=== PATIENT | male | born 1985 | race African-American/Black ===

== ENCOUNTER 2023-10-13 07:26 | Inpatient (IN) | payer MEDICAID, OTHER ==
--- NOTE | 2023-10-13 07:51 | ED ---
General Adult HPI - General Chief complaint: Psychiatric Symptoms Stated complaint: Mental health eval Time Seen by Provider: 10/13/23 07:40 Source: patient, police Mode of arrival: ambulatory Limitations: no limitations - History of Present Illness Initial comments: Dictation was produced using V[employer] dictation software. please excuse any grammatical, word or spelling errors. Chief Complaint: 38-year-old male presents to the ER for psychiatric evaluation History of Present Illness: Patient 38-year-old male brought in by police department. According to police patient's is concerned about his behavior. Patient is a poor historian and states that he is okay denies any physical complaints however unable to explain in detail why he was brought to the ER. Apparently according to PD he has been praying to sign God's and acting very bizarre. The ROS documented in this emergency department record has been reviewed and confirmed by me. Those systems with pertinent positive or negative responses have been documented in the HPI. All other systems are other negative and/or noncontributory. - Related Data Home Medications Medication Instructions Recorded Confirmed Unable To Assess [Unable to Assess] 10/13/23 10/13/23 Allergies Allergy/AdvReac Type Severity Reaction Status Date / Time No Known Allergies Allergy Verified 10/13/23 07:37 Review of Systems ROS Statement: Those systems with pertinent positive or pertinent negative responses have been documented in the HPI. ROS Other: All systems not noted in ROS Statement are negative. Past Medical History Past Medical History: No Reported History History of Any Multi-Drug Resistant Organisms: None Reported Past Surgical History: No Surgical Hx Reported Past Psychological History: No Psychological Hx Reported Smoking Status: Current every day smoker Past Alcohol Use History: None Reported Past Drug Use History: Marijuana General Exam - General Exam Comments Initial Comments: General: Well-appearing, nontoxic, no acute distress. Head: Normocephalic, atraumatic Eyes: PERRLA, EOMI ENT: Airway patent Chest: Nonlabored breathing Skin: No visual rash, normal skin tone Neuro: Alert and oriented 3 Musculoskeletal: No gross abnormalities Psych: Tangential speech, bizarre affect Limitations: no limitations Course Vital Signs 10/13/23 10/13/23 07:31 17:00 Temperature 97.4 F L Pulse Rate 78 78 Respiratory 18 18 Rate Blood Pressure 142/102 156/93 O2 Sat by Pulse 99 98 Oximetry Medical Decision Making - Medical Decision Making Was pt. sent in by a medical professional or institution (, L[facility]O, PSYCHOLOGICAL OPERATIONS SPECIALIST, urgent care, hospital, or fpc...) When possible be specific @ -No Did you speak to anyone other than the patient for history (EMS, parent, family, police, friend...)? What history was obtained from this source @ -See above Did you review nursing and triage notes (agree or disagree)? Why? @ -I reviewed and agree with nursing and triage notes Were old charts reviewed (outside hosp., previous admission, EMS record, old EKG, old radiological studies, urgent care reports/EKG's, fpc records)? Report findings @ -No old charts were reviewed Differential Diagnosis (chest pain, altered mental status, abdominal pain women, abdominal pain men, vaginal bleeding, musculoskeletal, weakness, fever, dyspnea, syncope, headache, dizziness, GI bleed, back pain, seizure, CVA, palpatations, mental health)? @ -Differential Mental Health: Depression, anxiety, bipolar, psychosis, schizophrenia, borderline personality, situational depression, adjustment disorder, behavioral disorder, brain tumor, malingering, substance abuse, encephalopathy, medication reaction, dementia, hypothyroidism, degenerative neurologic disorder, lupus.... This is not meant to be all-inclusive list EKG interpreted by me (3pts min.). @ -None done X-rays interpreted by me (1pt min.). @ -None done CT interpreted by me (1pt min.). @ -None done U/S interpreted by me (1pt. min.). @ -None done What testing was considered but not performed or refused? (CT, X-rays, U/S, labs)? Why? @ -None What meds were considered but not given or refused? Why? @ -None Did you discuss the management of the patient with other professionals (professionals i.e. , L[facility]O, PSYCHOLOGICAL OPERATIONS SPECIALIST, lab, RT, psych nurse, social services manager, bone drier operator, teacher, employee service officer, patient case manager)? Give summary @ -No Was smoking cessation discussed for >3mins.? @ -No Was critical care preformed (if so, how long)? @ -No Were there social determinants of health that impacted care today? How? (Homelessness, low income, unemployed, alcoholism, drug addiction, transpo rtation, low edu. Level, literacy, decrease access to med. care, snf, rehab)? @ -No Was there de-escalation of care discussed even if they declined (Discuss DNR or withdrawal of care, Hospice)? DNR status @ -No What co-morbidities impacted this encounter? (DM, HTN, Smoking, COPD, CAD, Cancer, CVA, ARF, Chemo, Hep., AIDS, mental health diagnosis, sleep apnea, morbid obesity)? @ -None Was patient admitted / discharged? Hospital course, mention meds given and route, prescriptions, significant lab abnormalities, going to OR and other pertinent info. @ -38-year-old male presents to the emergency department for psychiatric evaluation. Vital signs are stable. Patient well-appearing. Physical examination is unremarkable. Patient medically cleared for EPS evaluation. Patient will be admitted to inpatient psychiatry floor Undiagnosed new problem with uncertain prognosis? @ -No Drug Therapy requiring intensive monitoring for toxicity (Heparin, Nitro, Insulin, Cardizem)? @ -No Were any procedures done? @ -No Diagnosis/symptom? Acute, or Chronic, or Acute on Chronic? Uncomplicated (without systemic symptoms) or Complicated (systemic symptoms)? @ -Psychosis Side effects of treatment? @ -No Exacerbation, Progression, or Severe Exacerbation? @ -No Poses a threat to life or bodily function? How? (Chest pain, [place], [place], pneumonia, PE, COPD, DKA, ARF, appy, cholecystitis, CVA, Diverticulitis, Homicidal, Suicidal, threat to staff... and all critical care pts) @ -yes - Lab Data Lab Results 10/13/23 10/13/23 10/13/23 Range/Units 14:29 14:29 14:50 Urine Color Yellow Urine Appearance Clear (Clear) Urine pH 5.5 (5.0-8.0) Ur Specific [place] 1.032 (1.001-1.035) Urine Protein 1+ H (Negative) Urine Glucose (UA) Negative (Negative) Urine Ketones 2+ H (Negative) Urine Blood Small H (Negative) Urine Nitrite Negative (Negative) Urine Bilirubin Negative (Negative) Urine Urobilinogen <2.0 (<2.0) mg/dL Ur Leukocyte Esterase Negative (Negative) Urine RBC 4 (0-5) /hpf Urine WBC 2 (0-5) /hpf Urine Mucus Few H (None) /hpf Urine Opiates Screen Not Detected (NotDetected) Ur Oxycodone Screen Not Detected (NotDetected) Urine Methadone Screen Not Detected (NotDetected) Ur Barbiturates Screen Not Detected (NotDetected) U Tricyclic Antidepress Not Detected (NotDetected) Ur Phencyclidine Scrn Not Detected (NotDetected) Ur Amphetamines Screen Not Detected (NotDetected) U Methamphetamines Scrn Not Detected (NotDetected) U Benzodiazepines Scrn Not Detected (NotDetected) Urine Cocaine Screen Not Detected (NotDetected) U Marijuana (THC) Screen Detected H (NotDetected) Influenza Type A (PCR) Not Detected (Not Detectd) Influenza Type B (PCR) Not Detected (Not Detectd) RSV (PCR) Not Detected (Not Detectd) SARS-CoV-2 (PCR) Not Detected (Not Detectd) Disposition Clinical Impression: Psychosis Disposition: ADMITTED IP TO THIS HOSP Condition: Fair
[2023-10-13] MEDS ORDERED: LORazepam 2 MG/ML INJ IM PRN ×2 (12:00→17:11)
[2023-10-13] MEDS ORDERED: HALOPERIDOL LACTATE 5 MG/ML 1 ML VIAL IM PRN ×2 (12:00→17:11)
[2023-10-13] MEDS ORDERED: diphenhydrAMINE 50 MG/ML 1 ML VIAL IM PRN (12:01)
[2023-10-13 14:48] LABS: Amphetamine Screen,Urine Not Detected (NotDetected); Benzodiazepines Screen,Urine Not Detected (NotDetected); Cocaine Screen,Urine Not Detected (NotDetected); Opiate Screen,Urine Not Detected (NotDetected); Oxycodone Screen, Urine Not Detected (NotDetected); Phencyclidine Screen,Urine Not Detected (NotDetected); Tricyclic Antidepressant,Urine Not Detected (NotDetected); Urn Cannabinoid Scrn Detected (NotDetected)
[2023-10-13 14:49] LABS: Barbiturate Screen,Urine Not Detected (NotDetected); Methadone Screen, Urine Not Detected (NotDetected)
[2023-10-13 15:13] LABS: Appearance,Urine Clear (Clear); Bilirubin,Urine Negative (Negative); Blood,Urine Small (Negative); Color,Urine Yellow; Glucose,Urine (UA) Negative (Negative); Ketones,Urine 2+ (Negative); Leukocyte Esterase,Urine Negative (Negative); Mucus,Urine Few /hpf; Nitrite,Urine Negative (Negative); PH, Urine 5.5 (5.0-8.0); RBC,Urine 4 /hpf (0-5); Specific Gravity,Urine 1.032 (1.001-1.035); Urobilinogen,Urine <2.0 mg/dL (<2.0); WBC,Urine 2 /hpf (0-5)
[2023-10-13 15:15] LABS: Protein,Urine 1+ (Negative)
[2023-10-13] MEDS ORDERED: IBUPROFEN 600 MG TAB PO PRN (17:11)
[2023-10-13] MEDS ORDERED: LORazepam 1 MG TAB PO PRN (17:11)
[2023-10-13] MEDS ORDERED: haloperidoL 5 MG TAB PO PRN (17:11)
[2023-10-13] MEDS ORDERED: MAGNESIUM HYDROXIDE 2,400 MG/30 ML CUP PO PRN (17:11)
[2023-10-13] MEDS ORDERED: MAG HYDROX/AL HYDROX/SIMETH 355 ML BOTTLE PO PRN (17:11)
[2023-10-13] MEDS ORDERED: ACETAMINOPHEN TAB 325 MG TAB PO PRN (17:11)
--- NOTE | 2023-10-14 06:50 | P.PN ---
Progress Note - Text Progress Note Date: 10/14/23 Patient inappropriate for evaluation not responding to verbal cues
[2023-10-14 08:43] LABS: Basophils % (A) 1 %; Eosinophils # (A) 0.3 k/uL (0-0.7); Eosinophils % (A) 5 %; HCT 46.5 % (39.0-53.0); HGB 14.8 gm/dL (13.0-17.5); Lymphocytes # (A) 2.1 k/uL (1.0-4.8); Lymphocytes % (A) 38 %; MCH 27.2 pg (25.0-35.0); MCHC 31.9 g/dL (31.0-37.0); MCV 85.4 fL (80.0-100.0); Mean Platelet Volume 8.5; Monocytes # (A) 0.3 k/uL (0-1.0); Monocytes % (A) 6 %; Neutrophils # (A) 2.5 k/uL (1.3-7.7); Neutrophils % (A) 47 %; Platelet Count 186 k/uL (150-450); RBC 5.45 m/uL (4.30-5.90); RDW 14.1 % (11.5-15.5); WBC 5.4 k/uL (3.8-10.6)
[2023-10-14 08:53] LABS: ALT 34 U/L (4-49); AST 62 U/L (17-59); African American GFR (CKD) >90 (>60 ml/min/1.73 sqM); Albumin 5.1 g/dL (3.5-5.0); Alkaline Phosphatase 70 U/L (38-126); Anion Gap 10 mmol/L; Blood Urea Nitrogen 19 mg/dL (9-20); Calcium 9.8 mg/dL (8.4-10.2); Carbon Dioxide 24 mmol/L (22-30); Chloride 104 mmol/L (98-107); Glucose 98 mg/dL (74-99); Non-African American GFR(CKD) 80 (>60 ml/min/1.73 sqM); Potassium 4.2 mmol/L (3.5-5.1); Sodium 138 mmol/L (137-145); Total Bilirubin 1.8 mg/dL (0.2-1.3); Total Protein 9.6 g/dL (6.3-8.2)
[2023-10-14] MEDS: NICOTINE 14MG/24HR PATCH TRANSDERM SCH (08:57)
[2023-10-14 11:09] LABS: Urine Alcohol Negative (Negative); Urine Barbiturate Negative (Negative); Urine Cocaine Negative (Negative); Urine Methadone Negative (Negative); Urine Opiates Positive (Negative); Urine Phencyclidine Negative (Negative)
[2023-10-14] MEDS: PALIPERIDONE 3 MG TAB.ER.24 PO SCH (13:17)
[2023-10-14 18:37] LABS: LDL Cholesterol,Calculated 100.1 mg/dL (0.0-131.0); VLDL Calculation 16.18 mg/dL (5.00-40.00)
[2023-10-14] MEDS: traZODone HCL 50 MG TAB PO PRN (21:01)
--- NOTE | 2023-10-15 02:42 | P.CONS ---
History of Present Illness - Reason for Consult Consult date: 10/15/23 - History of Present Illness The patient is a 38-year-old male who was brought into the emergency room under police custody for strange behavior. The patient was admitted to the mental health unit where he was seen and evaluated. The patient has been nonverbal as per the mental health unit staff and is communicating via gesturing and writing answers on a piece of paper. The patient denied any active complaints at the time of interview. He denied experiencing chest discomfort, shortness of breath, fever, chills, cough, nausea, vomiting, abdominal pain, diarrhea. Patient reports recreational marijuana use but denies alcohol or tobacco use. Review of systems: Pertinent positives and negatives as discussed in HPI, a complete review of systems was performed and all other systems are negative. Physical examination: General: non toxic, no distress, appears at stated age, normal weight Derm: no unusual rashes/lesions, no unusual ecchymoses, warm, dry Head: atraumatic, normocephalic, symmetric Eyes: EOMI, no lid lag, anicteric sclera ENT: Nose and ears atraumatic, no thrush, no pharyngeal erythema Neck: trachea midline, supple Mouth: no lip lesion, mucus membranes moist Cardiovascular: S1S2 reg, no murmur, no edema Lungs: CTA bilateral, no rhonchi, no rales , no accessory muscle use Abdominal: soft, nontender to palpation, no guarding Ext: no gross muscle atrophy, no contractures, Neuro: No gross focal neuro deficits noted Psych: Alert, oriented, nonverbal Assessment: Marijuana abuse Psychosis Elevated total bilirubin Imaging: None performed Reviewed with urine toxicology positive for marijuana and opiates with total bilirubin 1.8 and AST 62 Plan: Advised on the importance of cessation from marijuana use Defer management of psychosis to primary psychiatry service Monitor LFTs for now and consider RUQ US if T bili remains elevated Thank you for allowing us to participate in the care of this patient. We will follow peripherally. Do not hesitate to contact us with questions. Someone can be reached from the [facility] hospitalist group at all hours of the day at [phone]. Past Medical History Past Medical History: No Reported History History of Any Multi-Drug Resistant Organisms: None Reported Past Surgical History: No Surgical Hx Reported Past Psychological History: No Psychological Hx Reported Smoking Status: Current every day smoker Past Alcohol Use History: None Reported Past Drug Use History: Marijuana Medications and Allergies Home Medications Medication Instructions Recorded Confirmed Type Unable To Assess [Unable to Assess] 10/13/23 10/13/23 History Allergies Allergy/AdvReac Type Severity Reaction Status Date / Time No Known Allergies Allergy Verified 10/13/23 07:37 Results CBC & Chem 7: 10/14/23 07:59 10/14/23 07:59 Labs: Abnormal Lab Results - Last 24 Hours (Table) 10/13/23 10/14/23 Range/Units 09:47 07:59 Total Bilirubin 1.8 H (0.2-1.3) mg/dL AST 62 H (17-59) U/L Total Protein 9.6 H (6.3-8.2) g/dL Albumin 5.1 H (3.5-5.0) g/dL HDL Cholesterol 27.70 L (40.00-60.00) mg/dL Urine Opiates Screen Positive A (Negative) U Cannabinoids Screen Positive A (Negative)
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
--- NOTE | 2023-10-15 08:06 | P.PN ---
Progress Note - Text Progress Note Date: 10/15/23 Interval History: Patient was seen in his room, and was directable and agreeable to speak with jose de jesus potts at the bedside. Patient appears less delusional today. Patient speaking to radio news writer in a normal tone of voice, compared to yesterday, where he was whispering. Patient appears to be improving with regards to responding to internal stimuli. Patient stated he slept like a baby, and that his mind is more clear today. Patient is going to some groups, and he claims his appetite is good. Patient offered no other complaints. At this time patient denies any suicidal or homicidal ideations, intent or plan. Patient denies any auditory, visual hallucinations and denies any paranoia or delusions. Patient denies any side effects from the medications and has been compliant with meds. He was less intrusive today. MENTAL STATUS EXAM: General Appearance: Patient appears to be stated age. is alert, directable, and attempts to cooperate. Patient appears to have mildly improving hygiene and grooming. Multiple tattoos all over his body Behavior: Patient is seated without any agitated behavior. Less responding to internal stimuli today. Speech: Patient's speech is a fluent and nonpressured. Mood/Affect: Patient reports their mood is depressed, affect is congruent and constricted. Proving mildly Suicidality/Homicidality: Patient denies having any homicidal ideation intent or plan. Denies any suicidal ideations intent or plan Perceptions: Patient denies any visual hallucinations and denies any auditory hallucinations Though content/process: There is no evidence of any delusional thought content Thought process mildly improving Memory and concentration: orientated to date Judgment and insight: poor, improving mildly IMPRESSIONS: psychosis, unspecified cannabis use disorder homelessness PLAN: -Patient is admitted under involuntary status to MHU for stabilization of psychiatric symptoms and safety. Patient has not signed adult voluntary form and medication consent and is placed in patient's chart. -Medications : Invega 3mg bid for psychosis trazodone 50mg qhs prn for insomnia -Ativan and Haldol PRN for agitation/aggression -NRT - nicotine patch -SW on board for discharge planning. Encourage patient to participate in groups to work on coping skills. Will await deferral and court date.
[2023-10-15 08:45] LABS: ALT 35 U/L (4-49); AST 51 U/L (17-59); African American GFR (CKD) >90 (>60 ml/min/1.73 sqM); Alkaline Phosphatase 63 U/L (38-126); Anion Gap 9 mmol/L; Blood Urea Nitrogen 18 mg/dL (9-20); Calcium 9.8 mg/dL (8.4-10.2); Carbon Dioxide 29 mmol/L (22-30); Chloride 103 mmol/L (98-107); Glucose 107 mg/dL (74-99); Non-African American GFR(CKD) 80 (>60 ml/min/1.73 sqM); Potassium 3.8 mmol/L (3.5-5.1); Sodium 141 mmol/L (137-145); Total Bilirubin 1.4 mg/dL (0.2-1.3); Total Protein 9.8 g/dL (6.3-8.2)
--- NOTE | 2023-10-16 15:11 | P.PN ---
Progress Note - Text Progress Note Date: 10/16/23 Interval history: Patient was seen attending group and was directable and agreeable to meet with senior medical writer. He alternates between whispering and writing down his responses. His responses are brief, but generally appropriate to questions asked. He writes down that "No one speaks the language of God" which "mines". When asked what that means, he writes "numbers, just numbers". He tends to smile and laugh inappropriately during assessment, but does not appear to be overtly attending to internal stimuli. His focus, attention are normal. There is no evidence of thought blocking or delays in responding. He reports good mood, good appetite but doesn't like the food much here, and reports he is sleeping "great". Sleep log shows he is sleeping continuously throughout the night. At this time, patient denies any suicidal or homicidal ideation, intent or plan. Denies any auditory or visual hallucinations. Patient denies any side effects from the medications and has been compliant with meds. Mental status exam: General Appearance: Patient appears to be stated age. Slender adult male with tattoos on legs and face. Hair wrapped in white fabric. Behavior: No agitated behavior. Patient is calm and directable. Speech: Patient's alternates between whispering and writing down his responses. This appears volitional and inconsistent. Mood/Affect: Mood is good, affect is broad, reactive. Suicidality/Homicidality: Patient denies having any suicidal or homicidal ideation intent or plan. Perceptions: Patient denies any auditory or visual hallucinations. Though content/process: There is no evidence of any delusional thought content during my assessment, and thought process appears linear. Memory and concentration: AOX3, grossly intact for the purposes of this session Judgment and insight: poor Assessment/Plan: Continue with current diagnosis. Patient continues to meet criteria for inpatient psychiatric admission for symptom stabilization and safety. Increase Invega 3 mg BID to 3 mg daily and 6 mg QHS for psychosis/mood stabilization. Monitor for medication compliance and for any psychotropic medication side effects. Will continue to monitor ongoing response to treatment. Encouraged participation in milieu.
[2023-10-16] MEDS: PALIPERIDONE 6 MG TAB.ER.24 PO SCH (20:37)
[2023-10-17] MEDS: PALIPERIDONE 3 MG TAB.ER.24 PO SCH (08:34)
[2023-10-18] MEDS: PALIPERIDONE 6 MG TAB.ER.24 PO SCH (08:42)
--- NOTE | 2023-10-18 17:38 | P.PN ---
Progress Note - Text Progress Note Date: 10/17/23 Interval history: Patient was seen walking in the hallway and was directable and agreeable to meet with typewriter assembler. Today he speaks clearly in low and calm voice, and does not write down his responses as he has been doing previously, but states it is good to write. He continues to smile and laugh to himself inappropriately at times. He continues to wear a white bedsheet on his head and states it is related to his "spirituality". He continues to display odd behaviors such as barking loudly in the hallway. He appears to be attending to internal stimuli at times, but appears to be making progress. At this time, patient denies any suicidal or homicidal ideation, intent or plan. Denies any auditory or visual hallucinations. Patient denies any side effects from the medications and has been compliant with meds. Mental status exam: General Appearance: Patient appears to be stated age. Slender adult male with tattoos. Hair wrapped in white fabric. Behavior: No agitated behavior. Odd, but calm and cooperative. Barks loudly. Speech: Speaks in low whisper, soft tone. Does not need to write anything down. Mood/Affect: Mood is good, affect is broad, reactive, odd smile. Suicidality/Homicidality: Patient denies having any suicidal or homicidal ideation intent or plan. Perceptions: Patient denies any auditory or visual hallucinations. Though content/process: There is evidence of some delusional thought content, and thought process appears linear. Memory and concentration: AOX3, grossly intact for the purposes of this session Judgment and insight: poor Assessment/Plan: Continue with current diagnosis. Patient continues to meet criteria for inpatient psychiatric admission for symptom stabilization and safety. Increase Invega 3 mg daily/6 mg QHS to 6 mg BID starting tomorrow morning psychosis/mood stabilization. Monitor for medication compliance and for any psychotropic medication side effects. Will continue to monitor ongoing response to treatment. Encouraged participation in milieu.
--- NOTE | 2023-10-18 17:42 | P.PN ---
Progress Note - Text Progress Note Date: 10/18/23 Interval history: Interval history: Patient was seen resting in his room and was directable and agreeable to meet with sports book writer. Today he speaks clearly in low and calm voice, and does not write down his responses. He continues to smile but affect appears more stable. He is no longer wearing the bedsheet wrapped on his head. No odd behaviors so far today. At this time, patient denies any suicidal or homicidal ideation, intent or plan. Denies any auditory or visual hallucinations. Patient denies any side effects from the medications and has been compliant with meds. Mental status exam: General Appearance: Patient appears to be stated age. Slender adult male with tattoos. Behavior: No agitated behavior. Calm and cooperative. Speech: Speaks in low whisper, soft tone. Mood/Affect: Mood is good, affect is broad, reactive. Suicidality/Homicidality: Patient denies having any suicidal or homicidal ideation intent or plan. Perceptions: Patient denies any auditory or visual hallucinations. Though content/process: There is no evidence of delusional thought content, and thought process appears linear. Memory and concentration: AOX3, grossly intact for the purposes of this session Judgment and insight: poor Assessment/Plan: Continue with current diagnosis. Patient continues to meet criteria for inpatient psychiatric admission for symptom stabilization and safety. Invega was increased to 6 mg BID starting this morning for psychosis/mood stabilization. Monitor for medication compliance and for any psychotropic medication side effects. Will continue to monitor ongoing response to treatment. Encouraged participation in milieu.
--- NOTE | 2023-10-19 20:09 | P.PN ---
Progress Note - Text Progress Note Date: 10/19/23 Interval history: Patient was seen resting in his room and was directable and agreeable to meet with telegraphic typewriter operator chief. He asks to write his answers instead of speak but when told that would mean he is not ready for discharge, he immediately began speaking in complete sentences. His mood and affect are stable. He is no longer wearing the bedsheet wrapped on his head. At this time, patient denies any suicidal or homicidal ideation, intent or plan. Denies any auditory or visual halluc inations. Patient denies any side effects from the medications and has been compliant with meds. When asked if he plans to continue his mediations after discharge, he states maybe for a few days to see if he still needs them. He was advised to continue on his medications and he expressed understanding. We discussed the Invega Sustenna long-acting injectible but he declined. Mental status exam: General Appearance: Patient appears to be stated age. Slender adult male with tattoos. Behavior: No agitated behavior. Calm and cooperative. Speech: Speaks in soft tone. Mood/Affect: Mood is good, affect is broad, reactive, smiles. Suicidality/Homicidality: Patient denies having any suicidal or homicidal ideation intent or plan. Perceptions: Patient denies any auditory or visual hallucinations. Though content/process: There is no evidence of delusional thought content, and thought process appears linear. Memory and concentration: AOX3, grossly intact for the purposes of this session Judgment and insight: mildly improving Assessment/Plan: Continue with current diagnosis. Patient continues to meet criteria for inpatient psychiatric admission for symptom stabilization and safety. Continue 6 mg BID starting this morning for psychosis/mood stabilization and Trazodone 50 mg QHS PRN for sleep. Monitor for medication compliance and for any psychotropic medication side effects. Will continue to monitor ongoing response to treatment. Encouraged participation in milieu. Consider discharge in the next 1-2 days if continues to stabilize.
--- NOTE | 2023-10-20 11:55 | P.PN ---
Progress Note - Text Progress Note Date: 10/20/23 Interval History: Patient was seen in group, and was directable and agreeable to speak with typewriter mechanic in the hallway. Patient appears less delusional today. Patient speaking to typewriter mechanic in a normal tone of voice, and not making bizarre hand gestures. Patient appears to be improving with regards to responding to internal stimulim was more approprite during interaction. Patient stated he slept very well last night. Patient is going to groups, stating he is really enjoying them, and he claims his appetite is good. Patient offered no other complaints. Director Of Field Sales spoke with patient about receiving a CHAVARRIA, typewriter mechanic explained the benefits to the CHAVARRIA vs remembering to take the oral medications, patient agreeable. At this time patient denies any suicidal or homicidal ideations, intent or plan. Patient denies any auditory, visual hallucinations and denies any paranoia or delusions. Patient denies any side effects from the medications and has been compliant with meds. He was less intrusive today. MENTAL STATUS EXAM: General Appearance: Patient appears to be stated age. is alert, directable, and attempts to cooperate. Patient appears to have mildly improving hygiene and grooming. Multiple tattoos all over his body Behavior: Patient is seated without any agitated behavior. No responding to inte rnal stimuli today. Speech: Patient's speech is a fluent and nonpressured. Mood/Affect: Patient reports their mood is good, affect is congruent and constricted. Improving mildly Suicidality/Homicidality: Patient denies having any homicidal ideation intent or plan. Denies any suicidal ideations intent or plan Perceptions: Patient denies any visual hallucinations and denies any auditory hallucinations Though content/process: There is no evidence of any delusional thought content Thought process mildly improving Memory and concentration: AOx4 Judgment and insight: poor, improving mildly IMPRESSIONS: psychosis, unspecified cannabis use disorder homelessness PLAN: -Patient is admitted under involuntary status to [facility] for stabilization of psychiatric symptoms and safety. Patient has not signed adult voluntary form and medication consent and is placed in patient's chart. -Medications : decrease Invega 3mg PO bid for psychosis plan will be to transiton onto CHAVARRIA. Invega Sustenna loading dose of 234mg IM, trazodone 50mg qhs prn for insomnia -Ativan and Haldol PRN for agitation/aggression -NRT - nicotine patch -SW on board for discharge planning. Encourage patient to participate in groups to work on coping skills. Patient deferred with he assistant city attorney. Likely discharge Vs Thursday once patient is transitioned onto CHAVARRIA and given second dose.
[2023-10-20] MEDS: PALIPERIDONE IM 234 MG/1.5 ML SYG IM STA (12:20)
[2023-10-20] MEDS: PALIPERIDONE 3 MG TAB.ER.24 PO SCH (21:20)
--- NOTE | 2023-10-21 10:31 | P.PN ---
Progress Note - Text Progress Note Date: 10/21/23 Interval History: Patient was seen in group, and was directable and agreeable to speak with sql report writer in the hallway. Patient stated he feels in the dark about what the next steps are at this time. Court Reporter explained to the patient that he will be given his next dose of his CHAVARRIA on Thursday, and as long as he continues to improve, he will be discharged after his injection. Patient is no longer delusional. No longer making bizarre hand gestures. Patient claims to be sleeping well, and his appetite is good. Patient is interacting with peers on the unit, and going to groups. At this time patient denies any suicidal or homicidal ideations, intent or plan. Patient denies any auditory, visual hallucinations and denies any paranoia or delusions. Patient denies any side effects from the medications and has been compliant with meds. MENTAL STATUS EXAM: General Appearance: Patient appears to be stated age. is alert, directable, and attempts to cooperate. Patient appears to have improving hygiene and grooming. Multiple tattoos all over his body Behavior: Patient is seated without any agitated behavior. Speech: Patient's speech is a fluent and nonpressured. Mood/Affect: Patient reports their mood is good, affect is congruent and constricted. Improving mildly Suicidality/Homicidality: Patient denies having any homicidal ideation intent or plan. Denies any suicidal ideations intent or plan Perceptions: Patient denies any visual hallucinations and denies any auditory hallucinations Though content/process: There is no evidence of any delusional thought content Thought process mildly improving Memory and concentration: AOx4 Judgment and insight: improving mildly IMPRESSIONS: psychosis, unspecified cannabis use disorder homelessness PLAN: -Patient is admitted under involuntary status to [facility] for stabilization of psychiatric symptoms and safety. Patient has not signed adult voluntary form and medication consent and is placed in patient's chart. -Medications : discontinue Invega 3mg PO after tonights dose, Invega Sustenna loading dose of 234mg IM, Invega Sustenna 156mg IM will be due Thursday morning prior to d/c. Next dose of 156mg on 11/19 at [facility]. trazodone 50mg qhs prn for insomnia -Ativan and Haldol PRN for agitation/aggression -NRT - nicotine patch - on board for discharge planning. Encourage patient to participate in groups to work on coping skills. Patient deferred with he mergers and acquisitions attorney. Likely discharge Thursday once patient is fully transitioned onto [facility]A
[2023-10-21] MEDS: PALIPERIDONE 3 MG TAB.ER.24 PO ONE (21:32)
[2023-10-22 09:57] VITALS: BMI 20.3
--- NOTE | 2023-10-22 09:57 | P.PN ---
Progress Note - Text Progress Note Date: 10/22/23 Interval History: Patient was seen in group, and was directable and agreeable to speak with writer producer in the hallway. Patient states that he is doing very well today. Patient is no longer delusional. No longer making bizarre hand gestures. Patient claims to be sleeping well, and his appetite is good. Patient is caring for his ADL's. Patient is interacting with peers on the unit, and going to groups. At this time patient denies any suicidal or homicidal ideations, intent or plan. Patient denies any auditory, visual hallucinations and denies any paranoia or delusions. Patient denies any side effects from the medications and has been compliant with meds. MENTAL STATUS EXAM: General Appearance: Patient appears to be stated age. is alert, directable, and attempts to cooperate. Patient appears to have improving hygiene and grooming. Multiple tattoos all over his body Behavior: Patient is seated without any agitated behavior. Speech: Patient's speech is a fluent and nonpressured. Mood/Affect: Patient reports their mood is very well, affect is congruent and constricted. Improving Suicidality/Homicidality: Patient denies having any homicidal ideation intent or plan. Denies any suicidal ideations intent or plan Perceptions: Patient denies any visual hallucinations and denies any auditory hallucinations Though content/process: There is no evidence of any delusional thought content Thought process mildly improving, more future oriented. Memory and concentration: AOx4 Judgment and insight: improving mildly IMPRESSIONS: psychosis, unspecified cannabis use disorder PLAN: -Patient is admitted under involuntary status to [facility] for stabilization of psychiatric symptoms and safety. Patient has not signed adult voluntary form and medication consent and is placed in patient's chart. -Medications : Invega Sustenna loading dose of 234mg IM given on 10/19, Invega Sustenna 156mg IM will be due Thursday morning prior to d/c. Next dose of 156mg on 11/19 at [facility]. trazodone 50mg qhs prn for insomnia -Ativan and Haldol PRN for agitation/aggression -NRT - nicotine patch - on board for discharge planning. Encourage patient to participate in groups to work on coping skills. Patient deferred with he real estate attorney. Likely discharge Thursday once patient is fully transitioned onto CHAV[facility]RIA
[2023-10-23] MEDS ORDERED: PALIPERIDONE IM 156 MG/ML SYG IM STA (09:55)
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
[2023-10-23 10:44] VITALS: BP 130/81; PULSE 72; RESP 16; TEMP 97.3
== END 2023-10-23 11:47 | disposition home or self-care (01) | DRG 751 ==
LOC: EC 07:26 → 3MHU 16:47
PROVIDERS: ADMIT Psychiatry & Neurology Psychiatry; ATTEND Psychiatry & Neurology Psychiatry
DX: F29 Unspecified psychosis not due to a substance or known physiological condition (principal); F12.10 Cannabis abuse, uncomplicated; Z71.51 Drug abuse counseling and surveillance of drug abuser; F17.200 Nicotine dependence, unspecified, uncomplicated; Z79.899 Other long term (current) drug therapy; Z11.52 Encounter for screening for COVID-19; Z28.21 Immunization not carried out because of patient refusal; Z71.3 Dietary counseling and surveillance; Z65.3 Problems related to other legal circumstances
CPT/HCPCS: 80053; 80061; 80306; 81001; 82075; 83036; 84443; 85025; 87636; 99285

== ENCOUNTER → 2024-04-21 | Outpatient (CLI) | payer OTHER ==
--- NOTE | 2024-04-21 15:30 | XR ---
EXAMINATION TYPE: XR bone survey complete DATE OF EXAM: 04/21/2024 COMPARISON: NONE HISTORY: HYPERLIPIDEMIA, MONOCLONAL GAMMOPATHY FINDINGS: Bony calvarium : 2 views of the bony calvarium demonstrate. Definite osseous lesions identified. Spine: Two views of the cervical, thoracic and lumbar spines are submitted. Retrolisthesis C4-C5 and C5-C6 with degenerative disc disease C5-C6. Slight curvature of the thoracic spine. Mild degenerativ e disc disease thoracic spine. No definite osseous lesions. PELVIS: Single view of the pelvis demonstrates. No osseous lesions. Spina bifida occulta lumbosacral junction. UPPER EXTREMITIES: Two views of the upper extremities. No osseous lesions. LOWER EXTREMITIES: 2 views of the lower extremities. No osseous lesions. CHEST: There is a question of a deformity of the lateral margin of the right lower rib cage. IMPRESSION: 1. Findings are suggestive of a deformity involving the lateral right eighth or ninth rib. Dedicated rib series is recommended to exclude an osseous lesion. [facility], , 04/21/2024 3:28 PM
== END | disposition home or self-care (01) ==
LOC: RADXRMAIN 14:19
PROVIDERS: ATTEND Internal Medicine Hematology & Oncology
CPT/HCPCS: 77075

== ENCOUNTER 2025-01-18 15:02 | Inpatient (IN) | payer MEDICAID, OTHER ==
[2025-01-18 16:10] LABS: Bilirubin,Urine Negative (Negative); Blood,Urine Negative (Negative); Color,Urine Colorless; Glucose,Urine (UA) Negative (Negative); Ketones,Urine Negative (Negative); Leukocyte Esterase,Urine Negative (Negative); Nitrite,Urine Negative (Negative); PH, Urine 6.5 (5.0-8.0); Protein,Urine Negative (Negative); Specific Gravity,Urine 1.004 (1.001-1.035); Urobilinogen,Urine <2.0 mg/dL (<2.0)
[2025-01-18 16:25] LABS: Barbiturate Screen,Urine Not Detected (NotDetected); Benzodiazepines Screen,Urine Not Detected (NotDetected); Opiate Screen,Urine Not Detected (NotDetected); Oxycodone Screen, Urine Not Detected (NotDetected); Phencyclidine Screen,Urine Not Detected (NotDetected); Tricyclic Antidepressant,Urine Not Detected (NotDetected); Urn Cannabinoid Scrn Detected (NotDetected)
--- NOTE | 2025-01-18 17:29 | ED ---
Altered Mental Status HPI - General Chief Complaint: Altered Mental Status Stated Complaint: AMS Time Seen by Provider: 01/18/25 15:25 Source: patient, family, old records reviewed Mode of arrival: ambulatory - History of Present Illness Initial Comments: 39-year-old male presents to the emergency department for altered mental status. Patient was found walking the hallways in the hospital. He was over by CT. Patient was nonverbal and chose to write everything to communicate. He states he was at the hospital because it was raining. Upon review of the patient's chart it demonstrates he has been previously hospitalized for psychosis. We did call the patient's significant other. She states that the patient does have a history of psychosis and has been acting odd over the past couple of days. Previously followed with a psychiatrist however she states he is not currently taking his medications. HPI is limited as patient will not verbally communicate with us - Related Data Home Medications Medication Instructions Recorded Confirmed No Known Home Medications 01/18/25 01/18/25 Allergies Allergy/AdvReac Type Severity Reaction Status Date / Time No Known Allergies Allergy Verified 01/18/25 15:52 Review of Systems ROS Statement: Those systems with pertinent positive or pertinent negative responses have been documented in the HPI. ROS Other: All systems not noted in ROS Statement are negative. Past Medical History Past Medical History: No Reported History History of Any Multi-Drug Resistant Organisms: None Reported Past Surgical History: No Surgical Hx Reported Past Anesthesia/Blood Transfusion Reactions: No Reported Reaction Past Psychological History: No Psychological Hx Reported Smoking Status: Current every day smoker Past Alcohol Use History: None Reported Past Drug Use History: Marijuana General Exam Limitations: physical limitation General appearance: alert, in no apparent distress Head exam: Present: atraumatic, normocephalic, normal inspection Eye exam: Present: normal appearance, PERRL, EOMI. Absent: scleral icterus, conjunctival injection, periorbital swelling ENT exam: Present: normal exam, mucous membranes moist Neck exam: Present: normal inspection. Absent: tenderness, meningismus, ly mphadenopathy Respiratory exam: Present: normal lung sounds bilaterally. Absent: respiratory distress, wheezes, rales, rhonchi, stridor Cardiovascular Exam: Present: regular rate, normal rhythm, normal heart sounds. Absent: systolic murmur, diastolic murmur, rubs, gallop, clicks GI/Abdominal exam: Present: soft, normal bowel sounds. Absent: distended, tenderness, guarding, rebound, rigid Extremities exam: Present: normal inspection, full ROM, normal capillary refill. Absent: tenderness, pedal edema, joint swelling, calf tenderness Back exam: Present: normal inspection Neurological exam: Present: alert, CN II-XII intact Psychiatric exam: Present: flat affect, other (Patient refuses to verbally communicate) Skin exam: Present: warm, dry, intact, normal color. Absent: rash Course Vital Signs 01/18/25 15:20 Pulse Rate 90 Respiratory 16 Rate Blood Pressure 134/101 O2 Sat by Pulse 100 Oximetry Medical Decision Making - Medical Decision Making Was pt. sent in by a medical professional or institution (, PA, FISCAL ECONOMIST, urgent care, hospital, or half-way...) When possible be specific @ -No Did you speak to anyone other than the patient for history (EMS, parent, family, police, friend...)? What history was obtained from this source @ -Spoke with the significant other for history Did you review nursing and triage notes (agree or disagree)? Why? @ -I reviewed and agree with nursing and triage notes Were old charts reviewed (outside hosp., previous admission, EMS record, old EKG, old radiological studies, urgent care reports/EKG's, half-way records)? Report findings @ -I reviewed the patient's chart from October 2023 where he was admitted for psychosis Differential Diagnosis (chest pain, altered mental status, abdominal pain women, abdominal pain men, vaginal bleeding, weakness, fever, dyspnea, syncope, headache, dizziness, GI bleed, back pain, seizure, CVA, palpatations, mental health, musculoskeletal)? @ -Differential Mental Health Depression, anxiety, bipolar, psychosis, schizophrenia, borderline personality, situational depression, adjustment disorder, behavioral disorder, brain tumor, malingering, substance abuse, encephalopathy, medication reaction, dementia, hypothyroidism, degenerative neurologic disorder, lupus.... This is not meant to be all-inclusive list EKG interpreted by me (3pts min.). @ -Not done X-rays interpreted by me (1pt min.). @ -None done CT interpreted by me (1pt min.). @ -None done U/S interpreted by me (1pt. min.). @ -None done What testing was considered but not performed or refused? (CT, X-rays, U/S, l abs)? Why? @ -None What meds were considered but not given or refused? Why? @ -None Did you discuss the management of the patient with other professionals (professionals i.e. , PA, FISCAL ECONOMIST, lab, RT, psych nurse, secondary social studies teacher, closet organizer, teacher, credit or loans officer, case management director)? Give summary @ -Spoke with EPS who does want the patient admitted Was smoking cessation discussed for >3mins.? @ -No Was critical care preformed (if so, how long)? @ -No Were there social determinants of health that impacted care today? How? (Homelessness, low income, unemployed, alcoholism, drug addiction, transportatio n, low edu. Level, literacy, decrease access to med. care, prison, rehab)? @ -No Was there de-escalation of care discussed even if they declined (Discuss DNR or withdrawal of care, Hospice)? DNR status @ -No What co-morbidities impacted this encounter? (DM, HTN, Smoking, COPD, CAD, Cancer, CVA, ARF, Chemo, Hep., AIDS, mental health diagnosis, sleep apnea, morbid obesity)? @ -Bipolar disorder Was patient admitted / discharged? Hospital course, mention meds given and route, prescriptions, significant lab abnormalities, going to OR and other pertinent info. @ -Upon arrival patient seen and evaluated in bed 27. Thorough history and physical exam was performed. Patient does provide a urine sample. We did speak to the patient significant other who states the patient has not been on his medi cations or followed with [facility]. Does admit to bizarre behavior. Patient is made medically clear and is seen by EPS who feels that the patient needs to be admitted. I did fill out a certification on the patient. He is admitted to the floor in stable condition Undiagnosed new problem with uncertain prognosis? @ -No Drug Therapy requiring intensive monitoring for toxicity (Heparin, Nitro, Insulin, Cardizem)? @ -No Were any procedures done? @ -No Diagnosis/symptom? @ -Acute psychosis, history of psychosis Acute, or Chronic, or Acute on Chronic? @ -Acute on chronic Uncomplicated (without systemic symptoms) or Complicated (systemic symptoms)? @ -Complicated Side effects of treatment? @ -No Exacerbation, Progression, or Severe Exacerbation? @ -No Poses a threat to life or bodily function? How? (Chest pain, [place], HI, pneumonia, PE, COPD, DKA, ARF, appy, cholecystitis, CVA, Diverticulitis, Homicidal, Suicidal, threat to staff... and all critical care pts) @ -No - Lab Data Result diagrams: 01/19/25 07:16 01/19/25 07:16 Lab Results 01/18/25 01/18/25 Range/Units 15:49 18:21 Urine Color Colorless Urine Appearance Clear (Clear) Urine pH 6.5 (5.0-8.0) Ur Specific [place] 1.004 (1.001-1.035) Urine Protein Negative (Negative) Urine Glucose (UA) Negative (Negative) Urine Ketones Negative (Negative) Urine Blood Negative (Negative) Urine Nitrite Negative (Negative) Urine Bilirubin Negative (Negative) Urine Urobilinogen <2.0 (<2.0) mg/dL Ur Leukocyte Esterase Negative (Negative) Urine Opiates Screen Not Detected (NotDetected) Ur Oxycodone Screen Not Detected (NotDetected) Urine Methadone Screen Not Detected (NotDetected) Ur Barbiturates Screen Not Detected (NotDetected) U Tricyclic Antidepress Not Detected (NotDetected) Ur Phencyclidine Scrn Not Detected (NotDetected) Ur Amphetamines Screen Not Detected (NotDetected) U Methamphetamines Scrn Not Detected (NotDetected) U Benzodiazepines Scrn Not Detected (NotDetected) Urine Cocaine Screen Not Detected (NotDetected) U Marijuana (THC) Screen Detected H (NotDetected) SARS-CoV-2 (PCR) Not Detected (Not Detectd) Disposition Clinical Impression: Psychosis, Cannabis use disorder Disposition: TRANSFER TO PSYCH HOSP/UNIT Condition: Stable Is patient prescribed a controlled substance at d/c from ED?: No
[2025-01-18] MEDS ORDERED: MAGNESIUM HYDROXIDE 2,400 MG/30 ML CUP PO PRN (21:00)
[2025-01-18] MEDS ORDERED: IBUPROFEN 600 MG TAB PO PRN (21:00)
[2025-01-18] MEDS ORDERED: ACETAMINOPHEN TAB 325 MG TAB PO PRN (21:00)
[2025-01-18] MEDS ORDERED: MAG HYDROX/AL HYDROX/SIMETH 355 ML BOTTLE PO PRN (21:00)
[2025-01-18] MEDS ORDERED: LORazepam 1 MG/0.5 ML VIAL IM PRN (21:02)
[2025-01-18] MEDS ORDERED: HALOPERIDOL LACTATE 5 MG/ML 1 ML VIAL IM PRN (21:02)
[2025-01-19 07:52] LABS: Basophils # (A) 0.04 10*3/uL (0.00-0.10); Basophils % (A) 0.8 %; Eosinophils # (A) 0.42 10*3/uL (0.04-0.35); Eosinophils % (A) 8.9 %; HCT 38.5 % (39.6-50.0); HGB 12.9 g/dL (13.0-17.0); Lymphocytes # (A) 2.67 10*3/uL (0.90-5.00); Lymphocytes % (A) 56.6 %; MCH 26.4 pg (27.0-32.0); MCHC 33.5 g/dL (32.0-37.0); MCV 78.9 fL (80.0-97.0); Monocytes # (A) 0.31 10*3/uL (0.20-1.00); Monocytes % (A) 6.6 %; Neutrophils # (A) 1.28 10*3/uL (1.80-7.70); Neutrophils % (A) 27.1 %; Platelet Count 188 10*3/uL (140-440); RBC 4.88 10*6/uL (4.40-5.60); RDW 14.6 % (11.5-14.5); WBC 4.72 10*3/uL (4.50-10.00)
[2025-01-19 08:09] LABS: ALT 17 U/L (4-49); AST 25 U/L (17-59); African American GFR (CKD) >90 (>60 ml/min/1.73 sqM); Albumin 4.5 g/dL (3.5-5.0); Alkaline Phosphatase 43 U/L (38-126); Anion Gap 9 mmol/L; Blood Urea Nitrogen 8 mg/dL (9-20); Calcium 9.3 mg/dL (8.4-10.2); Carbon Dioxide 28 mmol/L (22-30); Chloride 103 mmol/L (98-107); Glucose 87 mg/dL (74-99); Non-African American GFR(CKD) 81 (>60 ml/min/1.73 sqM); Potassium 4.0 mmol/L (3.5-5.1); Sodium 140 mmol/L (137-145); Total Protein 8.2 g/dL (6.3-8.2)
[2025-01-19] MEDS: NICOTINE 14MG/24HR PATCH TRANSDERM SCH (09:32)
--- NOTE | 2025-01-19 13:35 | P.HP ---
Psychiatric H&P - . H&P Date: 01/19/25 History & Physical: Allergies Allergy/AdvReac Type Severity Reaction Status Date / Time No Known Allergies Allergy Verified 01/18/25 15:52 Vital Signs Temp 97.2 F L 01/19/25 09:33 Pulse 87 01/19/25 09:33 Resp 18 01/19/25 09:33 BP 118/83 01/19/25 09:33 Pulse Ox 100 01/18/25 23:29 FiO2 Intake & Output 01/18/25 01/19/25 01/19/25 18:59 06:59 18:59 Weight 77.111 kg 63.7 kg Laboratory Last Values WBC 4.72 10*3/uL (4.50-10.00) 01/19/25 07:16 RBC 4.88 10*6/uL (4.40-5.60) 01/19/25 07:16 Hgb 12.9 g/dL (13.0-17.0) L 01/19/25 07:16 Hct 38.5 % (39.6-50.0) L 01/19/25 07:16 MCV 78.9 fL (80.0-97.0) L 01/19/25 07:16 MCH 26.4 pg (27.0-32.0) L 01/19/25 07:16 MCHC 33.5 g/dL (32.0-37.0) 01/19/25 07:16 Plt Count 188 10*3/uL (140-440) 01/19/25 07:16 MPV 10.8 fL (9.5-12.2) 01/19/25 07:16 Immature Gran % (Auto) 0 % 01/19/25 07:16 Neutrophils % 27.1 % 01/19/25 07:16 Lymphocytes % 56.6 % 01/19/25 07:16 Monocytes % 6.6 % 01/19/25 07:16 Eosinophils % 8.9 % 01/19/25 07:16 Basophils % 0.8 % 01/19/25 07:16 Immature Gran # 0.00 10*3/uL (0.00-0.04) 01/19/25 07:16 Neutrophils # 1.28 10*3/uL (1.80-7.70) L 01/19/25 07:16 Lymphocytes # 2.67 10*3/uL (0.90-5.00) 01/19/25 07:16 Monocytes # 0.31 10*3/uL (0.20-1.00) 01/19/25 07:16 Eosinophils # 0.42 10*3/uL (0.04-0.35) H 01/19/25 07:16 Basophils # 0.04 10*3/uL (0.00-0.10) 01/19/25 07:16 Sodium 140 mmol/L (137-145) 01/19/25 07:16 Potassium 4.0 mmol/L (3.5-5.1) 01/19/25 07:16 Chloride 103 mmol/L (98-107) 01/19/25 07:16 Carbon Dioxide 28 mmol/L (22-30) 01/19/25 07:16 Anion Gap 9 mmol/L 01/19/25 07:16 BUN 8 mg/dL (9-20) L 01/19/25 07:16 Creatinine 1.14 mg/dL (0.66-1.25) 01/19/25 07:16 Est GFR (CKD-EPI)AfAm >90 (>60 ml/min/1.73 sqM) 01/19/25 07:16 Est GFR (CKD-EPI)NonAf 81 (>60 ml/min/1.73 sqM) 01/19/25 07:16 Glucose 87 mg/dL (74-99) 01/19/25 07:[address] Glu mg/dL 94 mg/dL 01/19/25 07:16 Hemoglobin A1c 4.9 % (<=6.0) 01/19/25 07:16 Calcium 9.3 mg/dL (8.4-10.2) 01/19/25 07:16 Total Bilirubin 0.9 mg/dL (0.2-1.3) 01/19/25 07:16 AST 25 U/L (17-59) 01/19/25 07:16 ALT 17 U/L (4-49) 01/19/25 07:16 Alkaline Phosphatase 43 U/L (38-126) 01/19/25 07:16 Total Protein 8.2 g/dL (6.3-8.2) 01/19/25 07:16 Albumin 4.5 g/dL (3.5-5.0) 01/19/25 07:16 TSH 2.590 mIU/L (0.465-4.680) 01/19/25 07:16 Urine Color Colorless 01/18/25 15:49 Urine Appearance Clear (Clear) 01/18/25 15:49 Urine pH 6.5 (5.0-8.0) 01/18/25 15:49 Ur Specific [place] 1.004 (1.001-1.035) 01/18/25 15:49 Urine Protein Negative (Negative) 01/18/25 15:49 Urine Glucose (UA) Negative (Negative) 01/18/25 15:49 Urine Ketones Negative (Negative) 01/18/25 15:49 Urine Blood Negative (Negative) 01/18/25 15:49 Urine Nitrite Negative (Negative) 01/18/25 15:49 Urine Bilirubin Negative (Negative) 01/18/25 15:49 Urine Urobilinogen <2.0 mg/dL (<2.0) 01/18/25 15:49 Ur Leukocyte Esterase Negative (Negative) 01/18/25 15:49 Urine Opiates Screen Not Detected (NotDetected) 01/18/25 15:49 Ur Oxycodone Screen Not Detected (NotDetected) 01/18/25 15:49 Urine Methadone Screen Not Detected (NotDetected) 01/18/25 15:49 Ur Barbiturates Screen Not Detected (NotDetected) 01/18/25 15:49 U Tricyclic Antidepress Not Detected (NotDetected) 01/18/25 15:49 Ur Phencyclidine Scrn Not Detected (NotDetected) 01/18/25 15:49 Ur Amphetamines Screen Not Detected (NotDetected) 01/18/25 15:49 U Methamphetamines Scrn Not Detected (NotDetected) 01/18/25 15:49 U Benzodiazepines Scrn Not Detected (NotDetected) 01/18/25 15:49 Urine Cocaine Screen Not Detected (NotDetected) 01/18/25 15:49 U Marijuana (THC) Screen Detected (NotDetected) H 01/18/25 15:49 SARS-CoV-2 (PCR) Not Detected (Not Detectd) 01/18/25 18:21 01/19/25 13:24 IDENTIFYING DATA: Patient is a 39-year-old -Prydeinig male. States he lives with his , they live in a house, , has 1 children. unemployed HPI: Patient presented to the hospital was found wandering inside the hospital, he was evaluated and found to be psychotic responding to internal stimuli d isorganized, he was petitioned in the ER. As per EPS note, "Pt was found wandering in the hospital and brought to the ER. Upon assessment pt stated that he can't talk and did a sign to write. Pt does have selective mutism. RN states that we have talked before and aware that pt can talk, pt then was willing to talk to RN. Pt is still guarded. Pt denied SI, HI. Pt denied hallucinations but was seen by multiple staff responding to internal stimuli. Pt was seen staring at the wall. Pt appears distracted. RN spoke with pts who states that he is not well and feels like he is a risk to self as he has been wondering and not himself. She states that he believes that doctors are all agents and against him. He does not have insight into his mental health. He feels like he does not need any mental health treatment or medications. Pt denies any etoh, uses marijuana occasionally." Patient was admitted involuntarily to the mental health unit. Patient has a history of schizophrenia is closed out at [facility], previously on the long-acting injection antipsychotic however this has been discontinued. Patient was found wandering the hallways [place] to speak to principal technical writer in the office. He was bizarre at times, staring at the ceiling responding to internal stimuli. He denies everything on the petition. Denies any issues at home. When asked about stressors he listed off "jungles, dogs and cats" appears to be disorganized in his thought process, and he was alert and oriented x 3. He claims that he came into the hospital because it was "raining" and did not want to get them wet. Denies any depression or anxiety. Denies any paranoia at this time. No endorsing delusions. That his sleep and appetite are fair. Patient denies any suicidal or homicidal ideations intent or plan. At this time patient denies any auditory or visual hallucinations. Patient denies any flight of ideas racing thoughts. Patients UDS was positive for marijuana, he claims that he smokes marijuana daily and denies any other recreational drug use PAST PSYCHIATRIC HISTORY: Patient has a history of schizophrenia, he was last psychiatrically admitted in October 2023. Currently closed out at [facility] last seen was in 2023. He claims that he is not on any psychiatric medications at this time was previously on Invega Sustenna. Does not have an outpatient provider. Denies any suicidal thoughts PMH:As per ER note ALLERGIES: as per EMR CHEMICAL DEPENDENCY HISTORY: as per HPI FAMILY PSYCHIATRIC/SUBSTANCE USE HISTORY: denies SOCIAL HISTORY: unable to gather most information however claims that he does live with his and kids in the house. He is unemployed MENTAL STATUS EXAM: General Appearance: Patient appears to be thin, several tattoos, short hair, stated age. is alert, difficult to redirect, bizarre and responding to internal stimuli poor eye contact. Patient appears to have poor hygiene and grooming Behavior: Patient is seated without any agitated behavior. Responding to internal stimuli, staring at the ceiling Speech: Patient's speech is a whisper and nonpressured. Intermittent Mood/Affect: Patient reports their mood is "okay", affect is congruent and constricted. Inappropriate at times Suicidality/Homicidality: Patient denies having any homicidal ideation intent or plan. Denies any suicidal ideations intent or plan Perceptions: Patient denies any visual hallucinations and denies any auditory hallucinations Though content/process: There is evidence of any delusional thought content Thought process is disorganized and illogical, loose associations. Memory and concentration: Alert and oriented x 3 Judgment and insight: poor STRENGTHS/WEAKNESSES: strength is that patient is resilient. Weakness is that patient has poor judgment and is impulsive and has poor insight INTELLECT: average IMPRESSIONS: Schizophrenia cannabis use disorder PLAN: -Patient is admitted under involuntary status to MHU for stabilization of psychiatric symptoms and safety. Patient has not signed adult voluntary form and medication consent and is placed in patient's chart. A second certification was completed and along with petition will be filed for court. -Medications : Invega 3mg bid for psychosis. trazodone 50mg qhs prn for insomnia -Ativan and Haldol PRN for agitation/aggression -Patient was counselled on substance abuse and desired to cut back on use, he claims that he is not interested in rehab or resources -Patient was informed of the risks, benefits and side effects of the medication, he declined to sign any medications consent form and declined any information from the medications -Internal Medicine consult to perform medical evaluation and physical. -NRT - nicotine patch -SW on board for discharge planning. Encourage patient to participate in groups to work on coping skills. Will await deferral and court date. 01/19/25 13:30
[2025-01-19] MEDS: PALIPERIDONE 3 MG TAB.ER.24 PO SCH (14:29)
--- NOTE | 2025-01-19 20:43 | P.CONS ---
History of Present Illness - Reason for Consult Consult date: 01/19/25 medical co management - Chief Complaint altered mental status - History of Present Illness Martell is a 39-year-old male He presents the hospital he was found outside. It appears he was noted to be very disorganized and is currently taking patient behavioral health. Reports that he was diagnosed with schizophrenia however he denies any prior history of schizophrenia. Of note the patient was admitted to inpatient behavioral health in 2023 where he was making bizarre statements he was discharged home with paliperidone IM. Reports at this time he is not taking any medications. He reports he occasionally uses cannabis and occasional alcohol. Urine drug screen is positive for cannabis. CBC shows a white blood cell count 4.72 hemoglobin of 12.5 platelet count of 188. CMP shows no significant abnormalities Review of Systems ROS negative except per HPI Past Medical History Past Medical History: No Reported History History of Any Multi-Drug Resistant Organisms: None Reported Past Surgical History: No Surgical Hx Reported Past Anesthesia/Blood Transfusion Reactions: No Reported Reaction Smoking Status: Current every day smoker Medications and Allergies Home Medications Medication Instructions Recorded Confirmed Type No Known Home Medications 01/18/25 01/18/25 History Allergies Allergy/AdvReac Type Severity Reaction Status Date / Time No Known Allergies Allergy Verified 01/18/25 15:52 Physical Exam Vitals: Vital Signs Temp Pulse Resp BP Pulse Ox 01/19/25 09:33 97.2 F L 87 18 118/83 01/18/25 23:29 97.9 F 77 16 149/94 100 Intake and Output 01/19/25 01/19/25 01/19/25 06:59 14:59 22:59 Other: Weight 63.7 kg General: non toxic, no distress Derm: warm, dry Head: atraumatic, normocephalic, symmetric Eyes: EOMI, no lid lag, anicteric sclera, pupils equal round reactive to light ENT: Nose and ears atraumatic, no thrush, no pharyngeal erythema Neck: No thyromegaly, no cervical lymphadenopathy, trachea midline, supple Mouth: no lip lesion, mucus membranes moist Cardiovascular: S1S2 reg, no murmur, Lungs: clear to ascultation bilateral, no ronchi, no rales, no wheeze, no accessory muscle use Abdominal: soft, nontender to palpation, no guarding, no appreciable organomegaly, normal bowel sounds Ext: no gross muscle atroph Neuro: moving all extremetis spontanously Psych: calm and cooperative Results CBC & Chem 7: 01/19/25 07:16 01/19/25 07:16 Labs: Abnormal Lab Results - Last 24 Hours (Table) 01/19/25 01/19/25 Range/Units 07:16 07:16 Hgb 12.9 L (13.0-17.0) g/dL Hct 38.5 L (39.6-50.0) % MCV 78.9 L (80.0-97.0) fL MCH 26.4 L (27.0-32.0) pg Neutrophils # 1.28 L (1.80-7.70) 10*3/uL Eosinophils # 0.42 H (0.04-0.35) 10*3/uL BUN 8 L (9-20) mg/dL Assessment and Plan Assessment: #) Schziophrenia, primary management as per pscyahitry team #) Cannabis use, recommend cessation lipid profile pending at the time of this writing. please do not hesistat to contact us if any questions rise.
[2025-01-20] MEDS: LORazepam 1 MG TAB PO PRN (00:30)
[2025-01-20 02:38] LABS: Cholesterol 149.00 mg/dL (0.00-200.00); HDL Cholesterol 24.80 mg/dL (40.00-60.00); LDL Cholesterol,Calculated 112.1 mg/dL (0.0-131.0); Triglycerides 60.50 mg/dL (0.00-149.00); VLDL Calculation 12.10 mg/dL (5.00-40.00)
--- NOTE | 2025-01-20 11:34 | P.PN ---
Progress Note - Text Progress Note Date: 01/20/25 Interval history: Patient was seen today for psychiatric follow-up. He was wandering the hallways responding to internal stimuli looking at the ceiling. He appears to have mild improvement in his hygiene and grooming today. Has been taking his medications. He had a book with him he claims that he started to read it. When asked more about the work he states that "I do not know I just started reading". He continues to appear to be bizarre, disorganized thoughts. Appear to be fairly calm and follows most directions. Claims that he slept fairly last night denies any issues with appetite. Has not been going to groups. Denies any auditory or visual hallucinations denies any suicidal or homicidal ideations intent or plan MENTAL STATUS EXAM: General Appearance: Patient appears to be thin, several tattoos, short hair, stated age. is alert, difficult to redirect, bizarre and responding to internal stimuli improving eye contact. Patient appears to have poor hygiene and grooming Behavior: Patient is seated without any agitated behavior. Responding to internal stimuli, staring at the ceiling at times Speech: Patient's speech is a whisper and nonpressured. Mood/Affect: Patient reports their mood is "ok", affect is congruent and constricted. Suicidality/Homicidality: Patient denies having any homicidal ideation intent or plan. Denies any suicidal ideations intent or plan Perceptions: Patient denies any visual hallucinations and denies any auditory hallucinations Though content/process: There is evidence of any delusional thought content Thought process is disorganized, loose associations. improving mildly. Memory and concentration: Alert and oriented x 3, follows most commands Judgment and insight: poor IMPRESSIONS: Schizophrenia cannabis use disorder PLAN: -Patient is admitted under involuntary status to MHU for stabilization of psychiatric symptoms and safety. Patient has not signed adult voluntary form and medication consent and is placed in patient's chart. -Medications : Increase Invega 3mg daily +6 mg nightly for psychosis. trazodone 50mg qhs prn for insomnia -Ativan and Haldol PRN for agitation/aggression -NRT - nicotine patch -SW on board for discharge planning. Encourage patient to participate in groups to work on coping skills. Deferral is scheduled for today with attorney at law, for court hearing scheduled for Thursday
[2025-01-20] MEDS: PALIPERIDONE 6 MG TAB.ER.24 PO SCH (20:43)
[2025-01-21] MEDS: PALIPERIDONE 3 MG TAB.ER.24 PO SCH (09:17)
--- NOTE | 2025-01-21 15:11 | P.PN ---
Progress Note - Text Progress Note Date: 01/21/25 Dictation was produced using [employer] dictation software. Please excuse any grammatical, word or spelling errors. Interval history: Patient was seen in his room for psychiatric follow-up. The patient was laying in bed, able to open his eyes and sit at the side of the bed when the com writer went to the room and called his name. The patient was using thumbs up and thumbs down to answer questions. He was looking at the ceiling at times and smiling, seems like he was responding to internal stimuli. He was asked if the com writer can hear his voice before leave the room and he states " I am alright." He denied any current suicidal, self-harm or homicidal thoughts or behavior, auditory or visual hallucination. Reported that his sleep has been good, it is reported that patient slept 4 hours overnight, claims that he has a good appetite, staff reported that he has been eating his meals. Asked about AVH, he denied any auditory hallucination however he asked about visual hallucination he looked at the ceiling and give the thumbs up. He has been compliant with his medication, denied any current side effects, no issues of aggression or agitation reported, he was calm, cooperative during the interview however did not share much verbally. MENTAL STATUS EXAM: General Appearance: Patient appears to be thin, several tattoos, short hair, stated age. is alert, difficult to redirect, bizarre and responding to internal stimuli at times, inappropriate smile at times, improving eye contact. Patient appears to have poor hygiene and grooming Behavior: Patient is seated without any agitated behavior. Responding to internal stimuli, staring at the ceiling at times Speech: Patient's speech is a whisper and nonpressured. Only states " I am alright" Mood/Affect: Patient reports their mood is "alright", affect is congruent and constricted. Suicidality/Homicidality: Patient denies having any homicidal ideation intent or plan. Denies any suicidal ideations intent or plan Perceptions: Patient reported visual hallucinations, was smiling and stares at the ceiling and denies any auditory hallucinations Though content/process: There is evidence of any delusional thought content Thought process is disorganized, loose associations. improving mildly. Memory and concentration: Alert and oriented x 3, follows most commands Judgment and insight: poor IMPRESSIONS: Schizophrenia cannabis use disorder Assessment/Plan: Continue with current diagnosis. Patient continues to meet criteria for inpatient psychiatric admission for symptom stabilization and safety. Patient will be maintained on current psychotropic medication regimen which includes Invega 3 mg p.o. daily and 6 mg p.o. at bedtime, trazodone 50 mg p.o. as needed at bedtime, psychoeducation was provided, risk, benefit and side effect discussed, patient denied any current side effects, denied any muscle stiffness, rigidity, abnormal movement, or drooling. Monitor for medication compliance and for any psychotropic medication side effects. Will continue to monitor ongoing response to treatment. Encouraged participation in milieu.
--- NOTE | 2025-01-22 14:59 | P.PN ---
Progress Note - Text Progress Note Date: 01/22/25 Dictation was produced using [employer] dictation software. Please excuse any grammatical, word or spelling errors. Interval history: Patient was seen in his room for psychiatric follow-up. The patient was seen earlier walking the hallway, and at another time eating his lunch. The patient was laying in bed, he was able to respond to assembly instructions writer when he went to the room. Initially he was moving his thumb up and down to answer questions however after some encouragement and education the patient was able to have a conversation with the assembly instructions writer. He states that he is feeling better, reported that he slept well last night, admitted to good appetite. Depression and anxiety to be at the low side, denied any current suicidal or homicidal thoughts or behavior, auditory or visual hallucination. When asked about his behavior and looking at the ceiling, patient states that " it is my way of meditation." Patient was encouraged to continue talking to staff and express his emotions and feelings. He states that he has been compliant with his medication, denied any current side effects, denied any muscle stiffness, rigidity, abnormal movement, or drooling. Patient was encouraged to participate in the milieu, he asked if he can go shower, patient was encouraged to take care of his ADL. Patient shows some improvement compared to previous day. MENTAL STATUS EXAM: General Appearance: Patient appears to be thin, several tattoos, short hair, stated age, is alert, improving eye contact. Patient appears to have poor hygiene and grooming Behavior: Patient is seated at the side of bed without any agitated behavior. Was able to answer questions today Speech: Patient's speech is a fluent and nonpressured. Slow in rate Mood/Affect: Patient reports their mood is "good", affect is congruent and constricted. Suicidality/Homicidality: Patient denies having any homicidal ideation intent or plan. Denies any suicidal ideations intent or plan Perceptions: Patient denied any current auditory or visual hallucination, mildly improved compared to previous day, was able to elaborate on his behavior as his way of meditation Though content/process: There is evidence of any delusional thought content Thought process is improving mildly. Memory and concentration: Alert and oriented x 3, follows most commands Judgment and insight: poor IMPRESSIONS: Schizophrenia cannabis use disorder Assessment/Plan: Continue with current diagnosis. Patient continues to meet criteria for inpatient psychiatric admission for symptom stabilization and safety. Patient will be maintained on current psychotropic medication regimen which includes Invega 3 mg p.o. daily and 6 mg p.o. at bedtime, trazodone 50 mg p.o. as needed at bedtime, no changes today, patient has been improving mildly, was able to have a conversation with the patient today, psychoeducation was provided, risk, benefit and side effect discussed, patient denied any current side effects, denied any muscle stiffness, rigidity, abnormal movement, or drooling. Monitor for medication compliance and for any psychotropic medication side effects. Will continue to monitor ongoing response to treatment. Encouraged participation in milieu.
--- NOTE | 2025-01-23 11:05 | P.PN ---
Progress Note - Text Progress Note Date: 01/23/25 Interval history: Patient was seen today for psychiatric follow-up. He was wandering the hallways responding to internal stimuli looking at the ceiling at times. Patient claims that he did not sign the deferral paperwork to speak to the field sales specialist. He believes that the field sales specialist may tell him he does not need medications. He declined a long- acting injection at this time. He claims that he has been talking with his wants to know when he will be home. Continues to have very poor insight and p oor judgment. Has been taking his medications not reporting any side effects. Not going to many groups. Up for meals. Claims that he slept fairly last night. Denies any auditory or visual hallucinations denies any suicidal or homicidal ideations intent or plan MENTAL STATUS EXAM: General Appearance: Patient appears to be thin, several tattoos, short hair, stated age. is alert, difficult to redirect, bizarre and responding to internal stimuli improving eye contact. Patient appears to have poor hygiene and grooming Behavior: Patient is seated without any agitated behavior. Responding to internal stimuli, staring at the ceiling at times Speech: Patient's speech is a whisper and nonpressured. Mood/Affect: Patient reports their mood is "ok", affect is congruent and constricted. Improving mildly Suicidality/Homicidality: Patient denies having any homicidal ideation intent or plan. Denies any suicidal ideations intent or plan Perceptions: Patient denies any visual hallucinations and denies any auditory hallucinations Though content/process: There is evidence of any delusional thought content Thought process is more organized today Memory and concentration: Alert and oriented x 3, follows most commands Judgment and insight: poor IMPRESSIONS: Schizophrenia cannabis use disorder PLAN: -Patient is admitted under involuntary status to MHU for stabilization of psychiatric symptoms and safety. Patient has not signed adult voluntary form and medication consent and is placed in patient's chart. -Medications : Increase Invega 3mg daily + 9 mg nightly for psychosis. trazodone 50mg qhs prn for insomnia plan will be to transition patient on to long-acting injection if patient receives mental health order. -Ativan and Haldol PRN for agitation/aggression -NRT - nicotine patch -SW on board for discharge planning. Encourage patient to participate in groups to work on coping skills. Will court hearing scheduled for Thursday
[2025-01-23] MEDS: PALIPERIDONE 3 MG TAB.ER.24 PO SCH (21:39)
--- NOTE | 2025-01-24 11:41 | P.PN ---
Progress Note - Text Progress Note Date: 01/24/25 Interval history: Patient was seen today for psychiatric follow-up. He was wandering the [facility] [facility], he continues to be looking up at the ceiling's at times. He appears to be fairly directable during conversation fairly concrete answers questions appropriately. Claims that he has been talking to his who note wants to know what he is to be discharged. He claims that the They have is and they are expecting kittens. He states that he has been eating well and sleeping well. Has been taking his medications. He continues to decline the long-acting injection and believes he will take his oral medications. Has not been going to many groups. Up for meals. Claims that he slept fairly last night. Denies any auditory or visual hallucinations denies any suicidal or homicidal ideations intent or plan MENTAL STATUS EXAM: General Appearance: Patient appears to be thin, several tattoos, short hair, stated age. is alert, difficult to redirect, bizarre and responding to internal stimuli improving eye contact. Patient appears to have mildly improving hygiene and grooming Behavior: Patient is seated without any agitated behavior. Responding to internal stimuli, staring at the ceiling at times, improving mildly Speech: Patient's speech is a whisper and nonpressured. Mood/Affect: Patient reports their mood is "fine", affect is congruent and constricted. Improving mildly Suicidality/Homicidality: Patient denies having any homicidal ideation intent or plan. Denies any suicidal ideations intent or plan Perceptions: Patient denies any visual hallucinations and denies any auditory hallucinations Though content/process: There is evidence of any delusional thought content Thought process is more organized today Memory and concentration: Alert and oriented x 3, follows most commands Judgment and insight: poor, improving mildly IMPRESSIONS: Schizophrenia cannabis use disorder PLAN: -Patient is admitted under involuntary status to MHU for stabilization of psychiatric symptoms and safety. Patient has not signed adult voluntary form and medication consent and is placed in patient's chart. -Medications : nvega 3mg daily + 9 mg nightly for psychosis. trazodone 50mg qhs prn for insomnia plan will be to transition patient on to long-acting injection if patient receives mental health order. -Ativan and Haldol PRN for agitation/aggression -check for cheeking -NRT - nicotine patch -SW on board for discharge planning. Encourage patient to participate in groups to work on coping skills. Will court hearing scheduled for Thursday. will likely need to transition onto CHAVARRIA prior to discharge
--- NOTE | 2025-01-25 09:53 | P.PN ---
Progress Note - Text Progress Note Date: 01/25/25 Interval history: Patient was seen today for psychiatric follow-up. He was wandering the [facility]. He appears to be a bit more cooperative today, continues to be fairly concrete superficial about his treatment. Has been taking his medications not reporting any side effects or problems. Claims that he slept fairly last night. We spoke again about the court hearing which will be scheduled shortly after the interview. Denies any depression or anxiety at this time. Claims that he is eating well not going to many groups. Denies any auditory or visual hallucinations denies any suicidal or homicidal ideations intent or plan MENTAL STATUS EXAM: General Appearance: Patient appears to be thin, several tattoos, short hair, stated age. is alert, difficult to redirect, bizarre and responding to internal stimuli improving eye contact. Patient appears to have mildly improving hygiene and grooming Behavior: Patient is seated without any agitated behavior. less Responding to internal stimuli, improving mildly Speech: Patient's speech is a whisper and nonpressured. Mood/Affect: Patient reports their mood is "alright", affect is congruent and constricted. Improving mildly Suicidality/Homicidality: Patient denies having any homicidal ideation intent or plan. Denies any suicidal ideations intent or plan Perceptions: Patient denies any visual hallucinations and denies any auditory hallucinations Though content/process: There is evidence of any delusional thought content Thought process is more organized today Memory and concentration: Alert and oriented x 3, follows most commands Judgment and insight: poor, improving mildly IMPRESSIONS: Schizophrenia cannabis use disorder PLAN: -Patient is admitted under involuntary status to MHU for stabilization of psychiatric symptoms and safety. Patient has not signed adult voluntary form and medication consent and is placed in patient's chart. -Medications : invega 3mg daily + 9 mg nightly for psychosis. will need to transition patient onto CHAVARRIA to help ensure compliance. trazodone 50mg qhs prn for insomnia. -Ativan and Haldol PRN for agitation/aggression -check for cheeking -NRT - nicotine patch -SW on board for discharge planning. Encourage patient to participate in groups to work on coping skills. Will court hearing scheduled for today. will likely need to transition onto CHAVARRIA prior to discharge
--- NOTE | 2025-01-26 12:09 | P.PN ---
Progress Note - Text Progress Note Date: 01/26/25 Interval history: Patient was seen today for psychiatric follow-up. He was seen today laying in bed, agreeable to speak to copywriter in the office. Denied any overnight issues claims that he is sleeping well. Claims that he is also eating well. Has not been going to many groups. He was noted to be not responding to internal stimuli today, answer questions appropriately more logical and goal oriented. He is not reporting any issues with his medications at this time. We spoke about the court order signed yesterday by the cyanide pot hardener he is agreeable to continue on treatment. We also spoke about transitioning onto long-acting injection today which he is okay with. Denies any depression or anxiety at this time. Claims that he is eating well not going to many groups. Denies any auditory or visual hallucinations denies any suicidal or homicidal ideations intent or plan MENTAL STATUS EXAM: General Appearance: Patient appears to be thin, several tattoos, short hair, stated age. is alert, more directable today, not responding to internal stimuli. Patient appears to have mildly improving hygiene and grooming Behavior: Patient is seated without any agitated behavior. More cooperative today, improving mildly Speech: Patient's speech is a whisper and nonpressured. Mood/Affect: Patient reports their mood is "ok", affect is congruent and constricted. Improving mildly Suicidality/Homicidality: Patient denies having any homicidal ideation intent or plan. Denies any suicidal ideations intent or plan Perceptions: Patient denies any visual hallucinations and denies any auditory hallucinations Though content/process: There is evidence of any delusional thought content Thought process is more organized today Memory and concentration: Alert and oriented x 3, follows most commands Judgment and insight: improving mildly IMPRESSIONS: Schizophrenia cannabis use disorder PLAN: -Patient is admitted under involuntary status to MHU for stabilization of psychiatric symptoms and safety. Patient has not signed adult voluntary form and medication consent and is placed in patient's chart. -Medications : d/c PO invega today, patient is agreeable to receive long-acting injection Uzedy today 125 sq to help with compliance, next dose will be due at [facility] on 02/23. trazodone 50mg qhs prn for insomnia. -Ativan and Haldol PRN for agitation/aggression -check for cheeking -NRT - nicotine patch -SW on board for discharge planning. Encourage patient to participate in groups to work on coping skills. Patient had a court hearing on 01/25 which resulted in a mental health court order. Patient will need to be transition onto long- acting injection today, if patient is doing well tomorrow discharged back home
[2025-01-26] MEDS: risperiDONE 125 MG/0.35 ML SYR (NO COST) SQ SCH (12:47)
[2025-01-26 22:00] VITALS: RESP 16
[2025-01-27 09:19] VITALS: BP 95/61; PULSE 119; TEMP 97.8
--- NOTE | 2025-01-27 11:17 | P.DS ---
Providers Date of admission: 01/18/25 20:52 Expected date of discharge: 01/27/25 Attending physician: Kalin Parrish MD Consults: 01/18/25 21:00 Consult Physician Routine Consulting Provider: Royer Hernandez Consult Reason/Comments: H&P Do you want consulting provider notified?: Yes Primary care physician: Stated None - Discharge Diagnosis(es) (1) Schizophrenia Current Visit: Yes Status: Acute Priority: High (2) Cannabis use disorder Current Visit: Yes Status: Acute Priority: Medium Hospital Course: Admission HPI: Admission note was completed by financial writer "Patient is a 39-year-old - [place] male. States he lives with his , they live in a house, , has 1 children. unemployed. Patient presented to the hospital was found wandering inside the hospital, he was evaluated and found to be psychotic responding to internal stimuli disorganized, he was petitioned in the ER. As per EPS note, "Pt was found wandering in the hospital and brought to the ER. Upon assessment pt stated that he can't talk and did a sign to write. Pt does have selective mutism. RN states that we have talked before and aware that pt can talk, pt then was willing to talk to RN. Pt is still guarded. Pt denied SI, HI. Pt denied hallucinations but was seen by multiple staff responding to internal stimuli. Pt was seen staring at the wall. Pt appears distracted. RN spoke with pts who states that he is not well and feels like he is a risk to self as he has been wondering and not himself. She states that he believes that doctors are all agents and against him. He does not have insight into his mental health. He feels like he does not need any mental health treatment or medications. Pt denies any etoh, uses marijuana occasionally." Patient was admitted involuntarily to the mental health unit. Patient has a history of schizophrenia is closed out at [facility], previously on the long-acting injection antipsychotic however this has been discontinued. Patient was found wandering the hallways [place] to speak to financial writer in the office. He was bizarre at times, staring at the ceiling responding to internal stimuli. He denies everything on the petition. Denies any issues at home. When asked about stressors he listed off "jungles, dogs and cats" appears to be disorganized in his thought process, and he was alert and oriented x 3. He claims that he came into the hospital because it was "raining" and did not want to get them wet. Denies any depression or anxiety. Denies any paranoia at this time. No endorsing delusions. That his sleep and appetite are fair. Patient denies any suicidal or homicidal ideations intent or plan. At this time patient denies any auditory or visual hallucinations. Patient denies any flight of ideas racing thoughts. Patients UDS was positive for marijuana, he claims that he smokes marijuana daily and denies any other recreational drug use." Hospital course: Upon admission to the unit patient was admitted involuntarily on a petition and certificate, this was filed to the courts, patient ended up having a court hearing and resulted in a mental health court order on 01/25. Patient was initially bizarre psychotic however with time and treatment patient got along well with other patients on the unit and followed unit protocol. Patient was compliant with the medications and denied any side effects throughout hospital c ourse. Patient was started on Invega increased to 12 mg p.o. daily for psychosis/mood stabilization. Trazodone 50 mg nightly as needed for sleep. Due to the patient's poor insight and lack of compliance with medications he was transitioned on to long-acting injection given Uzedy 125 mg SQ on 01/26 and will be due for next dose on 02/23 at [facility]. Patient spoke of his stressors however did not participate much in group/activity therapy and mainly kept to themselves during hospitalization. Patient was also seen by medical team for history and physical exam. Throughout the course of the hospitalization patient gradually improved with regards to mood, anxiety, psychosis, sleep and returned back to their baseline level of functioning. On the day of discharge patient denied any suicidal or homicidal ideations intent or plan denied any auditory or visual hallucinations. Patient endorsed wanting to live for their health and family. The patient denied any access to guns or weapons. Patient denied any paranoia and did not endorse any delusions. Patient does have a significant history of substance abuse and was counseled on abstaining from all substances including alcohol and marijuana. Patient was offered however declined inpatient substance-abuse rehab. Patient elected to do outpatient substance use treatment program through their outpatient provider. Patient was also counseled on the medications and need for regular compliance and was encouraged to follow-up with their outpatient appointment for mental health and also for primary care. Prior to discharge a family meeting will be arranged by social media marketing manager to answer any questions and ensure safety upon discharge incuding making sure that guns/weapons are either removed from the home or locked away. Mental status exam: General Appearance: Patient appears to be thin as a jacobs,, stated age is alert, pleasant, and cooperative. Patient is in no acute distress and has improved hygiene and grooming Behavior: Patient is calmly seated without any agitated behavior. Speech: Patient's speech is fluent and nonpressured. Mood/Affect: Patient reports their mood is "good", affect is congruent and euthymic. Suicidality/Homicidality: Patient denies having any suicidal or homicidal ideation intent or plan. Perceptions: Patient denies any auditory or visual hallucinations. Though content/process: There is no evidence of any delusional thought content and thought process is linear and goal-directed. Memory and concentration: AOX3, grossly intact for the purposes of this session. Can spell "WORLD" backwards correctly. Judgment and insight: Chronically poor, however has improved with guarded prognosis Impression: schizophrenia cannabis use disorder Plan: -Continue with discharge today as patient has improved and stabilized psychiatrically and is not currently an imminent threat to themself and/or others. Patient will remain at chronically elevated risk for harm to self and/or others due to their impulsivity and substance abuse. -Continue medications: given Uzedy 125 mg SQ on 01/26 and will be due for next dose on 02/23 at [facility], trazodone 50 mg nightly as needed for insomnia -Patient was counseled on the need for medication compliance and appropriate follow-up at mental health and also primary care for medical issues. Patient verbalized understanding and agreed. -Social work to help coordinate patients discharge today. also to ensure safe home environment that guns/weapons are either removed from the home or locked away. Social work also to arrange for patients follow up appointments with [facility] for psychiatric care along with follow up with primary care provider. -Patient counseled on abstaining from recreational drugs and marijuana and alcohol. Was informed/educated on the adverse effects on their physical and mental health. Patient verbally agreed and understood. Patient was offered substance abuse treatment however declined at this time. -Patient was instructed to return to the hospital or seek immediate medical care if their psychiatric or medical symptoms do worsen or reoccur. Allergies Allergy/AdvReac Type Severity Reaction Status Date / Time No Known Allergies Allergy Verified 01/18/25 15:52 Laboratory Results WBC 4.72 10*3/uL (4.50-10.00) 01/19/25 07:16 RBC 4.88 10*6/uL (4.40-5.60) 01/19/25 07:16 Hgb 12.9 g/dL (13.0-17.0) L 01/19/25 07:16 Hct 38.5 % (39.6-50.0) L 01/19/25 07:16 MCV 78.9 fL (80.0-97.0) L 01/19/25 07:16 MCH 26.4 pg (27.0-32.0) L 01/19/25 07:16 MCHC 33.5 g/dL (32.0-37.0) 01/19/25 07:16 Plt Count 188 10*3/uL (140-440) 01/19/25 07:16 MPV 10.8 fL (9.5-12.2) 01/19/25 07:16 Immature Gran % (Auto) 0 % 01/19/25 07:16 Neutrophils % 27.1 % 01/19/25 07:16 Lymphocytes % 56.6 % 01/19/25 07:16 Monocytes % 6.6 % 01/19/25 07:16 Eosinophils % 8.9 % 01/19/25 07:16 Basophils % 0.8 % 01/19/25 07:16 Immature Gran # 0.00 10*3/uL (0.00-0.04) 01/19/25 07:16 Neutrophils # 1.28 10*3/uL (1.80-7.70) L 01/19/25 07:16 Lymphocytes # 2.67 10*3/uL (0.90-5.00) 01/19/25 07:16 Monocytes # 0.31 10*3/uL (0.20-1.00) 01/19/25 07:16 Eosinophils # 0.42 10*3/uL (0.04-0.35) H 01/19/25 07:16 Basophils # 0.04 10*3/uL (0.00-0.10) 01/19/25 07:16 Sodium 140 mmol/L (137-145) 01/19/25 07:16 Potassium 4.0 mmol/L (3.5-5.1) 01/19/25 07:16 Chloride 103 mmol/L (98-107) 01/19/25 07:16 Carbon Dioxide 28 mmol/L (22-30) 01/19/25 07:16 Anion Gap 9 mmol/L 01/19/25 07:16 BUN 8 mg/dL (9-20) L 01/19/25 07:16 Creatinine 1.14 mg/dL (0.66-1.25) 01/19/25 07:16 Est GFR (CKD-EPI)AfAm >90 (>60 ml/min/1.73 sqM) 01/19/25 07:16 Est GFR (CKD-EPI)NonAf 81 (>60 ml/min/1.73 sqM) 01/19/25 07:16 Glucose 87 mg/dL (74-99) 01/19/25 07:[address] Glu mg/dL 94 mg/dL 01/19/25 07:16 Hemoglobin A1c 4.9 % (<=6.0) 01/19/25 07:16 Calcium 9.3 mg/dL (8.4-10.2) 01/19/25 07:16 Total Bilirubin 0.9 mg/dL (0.2-1.3) 01/19/25 07:16 AST 25 U/L (17-59) 01/19/25 07:16 ALT 17 U/L (4-49) 01/19/25 07:16 Alkaline Phosphatase 43 U/L (38-126) 01/19/25 07:16 Total Protein 8.2 g/dL (6.3-8.2) 01/19/25 07:16 Albumin 4.5 g/dL (3.5-5.0) 01/19/25 07:16 Triglycerides 60.50 mg/dL (0.00-149.00) 01/19/25 07:16 Cholesterol 149.00 mg/dL (0.00-200.00) 01/19/25 07:16 LDL Cholesterol, Calc 112.1 mg/dL (0.0-131.0) 01/19/25 07:16 VLDL Cholesterol, Calc 12.10 mg/dL (5.00-40.00) 01/19/25 07:16 HDL Cholesterol 24.80 mg/dL (40.00-60.00) L 01/19/25 07:16 Cholesterol/HDL Ratio 6.01 Ratio 01/19/25 07:16 TSH 2.590 mIU/L (0.465-4.680) 01/19/25 07:16 Urine Color Colorless 01/18/25 15:49 Urine Appearance Clear (Clear) 01/18/25 15:49 Urine pH 6.5 (5.0-8.0) 01/18/25 15:49 Ur Specific [place] 1.004 (1.001-1.035) 01/18/25 15:49 Urine Protein Negative (Negative) 01/18/25 15:49 Urine Glucose (UA) Negative (Negative) 01/18/25 15:49 Urine Ketones Negative (Negative) 01/18/25 15:49 Urine Blood Negative (Negative) 01/18/25 15:49 Urine Nitrite Negative (Negative) 01/18/25 15:49 Urine Bilirubin Negative (Negative) 01/18/25 15:49 Urine Urobilinogen <2.0 mg/dL (<2.0) 01/18/25 15:49 Ur Leukocyte Esterase Negative (Negative) 01/18/25 15:49 Urine Opiates Screen Not Detected (NotDetected) 01/18/25 15:49 Ur Oxycodone Screen Not Detected (NotDetected) 01/18/25 15:49 Urine Methadone Screen Not Detected (NotDetected) 01/18/25 15:49 Ur Barbiturates Screen Not Detected (NotDetected) 01/18/25 15:49 U Tricyclic Antidepress Not Detected (NotDetected) 01/18/25 15:49 Ur Phencyclidine Scrn Not Detected (NotDetected) 01/18/25 15:49 Ur Amphetamines Screen Not Detected (NotDetected) 01/18/25 15:49 U Methamphetamines Scrn Not Detected (NotDetected) 01/18/25 15:49 U Benzodiazepines Scrn Not Detected (NotDetected) 01/18/25 15:49 Urine Cocaine Screen Not Detected (NotDetected) 01/18/25 15:49 U Marijuana (THC) Screen Detected (NotDetected) H 01/18/25 15:49 SARS-CoV-2 (PCR) Not Detected (Not Detectd) 01/18/25 18:21 Vital Signs Temp 97.8 F 01/27/25 09:00 Pulse 119 H 01/27/25 09:00 Resp 16 01/27/25 09:00 BP 95/61 01/27/25 09:00 Pulse Ox 119 H 01/27/25 09:00 FiO2 Patient Condition at Discharge: Stable Plan - Discharge Summary New Discharge Prescriptions: New traZODone HCL [Desyrel] 50 mg PO HS PRN 14 Days #14 tab PRN Reason: Insomnia Ibuprofen [Motrin] 600 mg PO Q6HR PRN tab PRN Reason: Moderate Pain (Scale 4 To 6) risperiDONE [Uzedy] 125 mg SQ QMONTHLY #1 each Discharge Medication List Ibuprofen [Motrin] 600 mg PO Q6HR PRN tab 01/27/25 [Rx] risperiDONE [Uzedy] 125 mg SQ QMONTHLY #1 each 01/27/25 [Rx] traZODone HCL [Desyrel] 50 mg PO HS PRN 14 Days #14 tab 01/27/25 [Rx] Follow up Appointment(s)/Referral(s): [facility] [Other] - 1 Week (RYLAND Coburn) None,Stated [Primary Care Provider] - 1-2 days Activity/Diet/Wound Care/Special Instructions: [facility] Discharge Info Avoid the use of street drugs and alcohol. Take all medications as prescribed. When you are in need of refills on your medications, please contact your outpatient medical provider and/or outpatient psychiatrist. Please go to your scheduled outpatient appointments for aftercare treatment. If symptoms return or become worse, call the crisis line at or and/or visit the nearest emergency room for assistance. National Suicide and Crisis Lifeline - call or text 628.Medical physician recommends to follow up outpatient in 4-6 weeks to have thyroid levels checked again. Recommendations to have an EMG outpatient on bilateral upper extremities for probable bilateral carpal tunnel. Discharge Disposition: HOME SELF-CARE
== END 2025-01-27 15:16 | disposition home or self-care (01) | DRG 750 ==
LOC: EC 15:02 → 3MHU 20:52
PROVIDERS: ADMIT Psychiatry & Neurology Psychiatry; ATTEND Psychiatry & Neurology Psychiatry
DX: F20.9 Schizophrenia, unspecified (principal); F12.10 Cannabis abuse, uncomplicated; Z56.0 Unemployment, unspecified; F94.0 Selective mutism; G47.00 Insomnia, unspecified; Z91.83 Wandering in diseases classified elsewhere; Z91.199 Patient's noncompliance with other medical treatment and regimen due to unspecified reason; F41.9 Anxiety disorder, unspecified; F17.200 Nicotine dependence, unspecified, uncomplicated; Z71.51 Drug abuse counseling and surveillance of drug abuser
CPT/HCPCS: 80053; 80061; 80306; 81003; 83036; 84443; 85025; 87635; 99285